=== PATIENT | male | born 1990 | race Two or more races ===

== ENCOUNTER 2020-01-10 19:07 | Emergency (ER) | payer BC, OTHER ==
[~2020-01-10] VITALS: Ht 175.3 cm; Wt 72.6 kg
[2020-01-10 20:19] VITALS: BP 157/87
== END 2020-01-10 21:23 | disposition home or self-care (01) ==
LOC: ER 19:07
DX: R05 Cough (principal); R11.10 Vomiting, unspecified; R50.9 Fever, unspecified; K21.9 Gastro-esophageal reflux disease without esophagitis; I10 Essential (primary) hypertension
CPT/HCPCS: 71045